=== PATIENT | female | born 1965 | race Two or more races ===

== ENCOUNTER 2022-07-19 15:18 | Emergency (ER) | payer SELFPAY ==
[~2022-07-19] VITALS: Ht 154.9 cm; Wt 69.4 kg
[2022-07-19] MEDS ORDERED: HYDROcodone-ACET 10/325MG TAB PO ONE (16:30)
[2022-07-19] MEDS ORDERED: ACETAMINOPHEN 500 MG TAB PO ONE (17:30)
[2022-07-19] MEDS ORDERED: ACET-1158 PO (17:52)
[2022-07-19 17:55] VITALS: BP 138/73
== END 2022-07-19 17:58 | disposition home or self-care (01) ==
LOC: ER 15:18
DX: H27.10 Unspecified dislocation of lens (principal)
CPT/HCPCS: 70480